=== PATIENT | male | born 2000 | race Asian ===

== ENCOUNTER 2020-11-15 13:01 | Emergency (ER) | payer OTHER ==
[2020-11-15 14:51] LABS: ALT (SGPT) 15 U/L (8-55); AST (SGOT) 13 U/L (5-34); Albumin 4.5 g/dL (3.5-5.0); Alkaline Phosphatase 61 U/L (50-130); Anion Gap 14 mmol/L (10-20); BUN (Urea Nitrogen) 7 mg/dL (8.9-20.6); Bilirubin, Total 0.7 mg/dL (0.2-1.2); Calc. Creatinine Clearance 0 mL/min (70-130); Calcium 9.1 mg/dL (7.8-10.44); Carbon Dioxide 26 mmol/L (22-29); Chloride 104 mmol/L (98-107); Globulin 3.7 g/dL (2.4-3.5); Glucose 90 mg/dL (70-105); Potassium 3.2 mmol/L (3.5-5.1); Protein, Total 8.2 g/dL (6.0-8.3); Sodium 141 mmol/L (136-145)
[2020-11-15 15:04] LABS: Hemoglobin 8.7 g/dL (13.5-17.5); Mean Corpuscular HGB CONC 34.1 g/dL (32.0-36.0); Mean Corpuscular Hemoglobin 29.4 pg (27.0-33.0); Mean Corpuscular Volume 86.1 fl (81.2-95.1); Mean Platelet Volume 11.5 fl (7.4-10.4); Platelet Count 7 10x3/uL (150-450); RBC Distribution Width 11.9 % (11.5-14.5); Red Blood Cell (RBC) Count 2.96 10x6/uL (4.32-5.72); White Blood Cell (WBC) Count 1.5 10x3/uL (3.5-10.5)
[2020-11-15 15:29] LABS: INR-International Normal Ratio 1.1; PTT 29.4 sec (22.0-33.0); Prothrombin Time 11.9 sec (9.5-12.1)
[2020-11-15 16:06] LABS: MDiff Complete? YES
[2020-11-15] MEDS ORDERED: Dexamethasone 10 MG/ML VIAL ONE (16:12)
[2020-11-15] MEDS ORDERED: Cefepime 2 GM VIAL ONE (16:13)
[2020-11-15 16:52] LABS: Bilirubin Neg (Negative); Blood, Urine Negative (Negative); Clarity Clear (Clear); Glucose, Urine (Dipstick) Normal (Negative); Ketone, Urine Negative (Negative); Leukocyte Negative (Negative); Nitrite Negative (Negative); Protein, Urine (Dipstick) Negative (Neg-Trace); Urobilinogen Normal mg/dL (Less than 2)
[2020-11-15 17:19] LABS: Lymphocytes 93 % (28-48); Monocytes 1 % (0-4); Myelocyte 1 % (0-0); Neutrophil 4 % (31-61); Reactive Lymphocytes 1 % (0-10)
[2020-11-15 17:29] LABS: Reflex for Review?? YES
[2020-11-15 17:30] LABS: Platelet Morphology Comment Appears Decreased
[2020-11-16 01:28] LABS: SARS-CoV-2 PCR by NAA Not Detected (NotDetected)
== END 2020-11-15 16:48 | disposition short-term general hospital (02) ==
LOC: CSHERS 13:01
DX: D61.818 Other pancytopenia (principal); D70.9 Neutropenia, unspecified; R50.81 Fever presenting with conditions classified elsewhere; I10 Essential (primary) hypertension; Z20.822 Contact with and (suspected) exposure to COVID-19
CPT/HCPCS: 36415; 36430; 71045; 80053; 81003; 83605; 85025; 85060; 85610; 85730; 86850; 86900; 86901; 87040; 87086; 87635; 96374; 96375; J0692; J1100; J3370; P9035; U0003; U0005